=== PATIENT | male | born 1985 | race Caucasian/White ===

== ENCOUNTER 2017-11-16 03:11 | Inpatient (IN) | payer OTHER ==
[2017-11-16] VITALS (8 sets, daily range): BP systolic 112–130; BP diastolic 58–95
[~2017-11-16] VITALS: Ht 177.8 cm; Wt 73.5 kg
[~2017-11-16 03:11] MED LIST: CEPHALEXIN500 M1 PO; GABAPENTIN800 MG PO; PERCOCET 325 MG1 TA2 PO
[2017-11-16 04:07] LABS: ALBUMIN 3.6 gm/dl (3.1-4.5); ALKALINE PHOSPHATASE 58 U/L (45-117); BUN 9 mg/dl (7-24); CHLORIDE 108 mmol/L (98-107); CREATININE 0.93 mg/dL (0.70-1.30); POTASSIUM 3.9 mmol/L (3.5-5.1); SGOT/AST 436 IU/L (3-35); SGPT/ALT 134 U/L (12-78); SODIUM 143 mmol/L (136-145); TOTAL PROTEIN 7.1 gm/dL (6.4-8.2)
[2017-11-16 04:08] LABS: TROPONIN I < 0.015 ng/ml (<0.045)
[2017-11-16 04:37] LABS: BASO # 0.1 10*3/uL (0.0-0.1); BASO % 1.1 % (0.0-1.0); EOS # 0.3 10*3/uL (0.0-0.4); EOS % 4.4 % (1.0-4.0); HEMATOCRIT 45.6 % (42.0-52.0); HEMOGLOBIN 14.9 g/dl (14.0-18.0); LYMPH # 2.1 10*3/uL (1.3-4.4); LYMPH % 31.7 % (27.0-41.0); MEAN CELL VOLUME 88.7 fl (80.0-94.0); MEAN CORPUSCULAR HGB CONC 32.7 g/dl (33.0-37.0); MEAN PLATELET VOLUME 12.4 fl (9.6-12.3); MONO # 0.4 10*3/uL (0.1-1.0); MONO % 6.6 % (3.0-9.0); NEUT # 3.7 10*3/uL (2.3-7.9); PLATELET COUNT AUTOMATED 181 10*3/uL (130-400); RED BLOOD COUNT 5.14 10*6/uL (4.50-5.90); RED CELL DISTRI WIDTH 14.1 % (0-14.5); WHITE BLOOD COUNT 6.5 10*3/uL (4.8-10.8)
[2017-11-16 13:44] LABS: FREE T4 1.21 ng/dl (0.76-1.46)
[2017-11-16 13:48] LABS: THYROID STIM HORMONE (HS) 0.451 uIU/ml (0.358-4.75)
[2017-11-16] MEDS ORDERED: NEURONTIN600 MG PO (17:04)
[2017-11-16] MEDS ORDERED: TRAZODONE100 MG PO (17:04)
[2017-11-17] VITALS: BP 123/75
[2017-11-17 04:00] VITALS: BP 108/59
[2017-11-17 16:00] VITALS: BP 104/55
[2017-11-17 20:00] VITALS: BP 114/63
[2017-11-18] VITALS: BP 156/83
[2017-11-18 10:00] VITALS: BP 120/60
[2017-11-18 12:00] VITALS: BP 116/81
[2017-11-18 16:00] VITALS: BP 113/63
[2017-11-18 20:00] VITALS: BP 127/86
[2017-11-19] MEDS ORDERED: ZOFRAN4 MG PO (11:38)
[2017-11-19] MEDS ORDERED: VISTARIL25 MG PO (11:38)
== END 2017-11-19 11:46 | disposition home or self-care (01) | DRG 309 ==
LOC: ED 03:11 → EDHOLD 05:53 → 5E 05:53
PROVIDERS: Emergency Medicine; Internal Medicine
DX: R00.1 Bradycardia, unspecified (principal); I50.30 Unspecified diastolic (congestive) heart failure; D72.1 Eosinophilia; E87.8 Other disorders of electrolyte and fluid balance, not elsewhere classified; E83.41 Hypermagnesemia; F11.10 Opioid abuse, uncomplicated; F39 Unspecified mood [affective] disorder; R74.0 Nonspecific elevation of levels of transaminase and lactic acid dehydrogenase [LDH]; F15.10 Other stimulant abuse, uncomplicated; F14.10 Cocaine abuse, uncomplicated; Z72.0 Tobacco use; Z87.898 Personal history of other specified conditions; Z87.81 Personal history of (healed) traumatic fracture; Z79.899 Other long term (current) drug therapy; Z90.49 Acquired absence of other specified parts of digestive tract; Z71.6 Tobacco abuse counseling; Z82.49 Family history of ischemic heart disease and other diseases of the circulatory system

== ENCOUNTER 2017-12-01 14:31 | Emergency (ER) | payer OTHER ==
[~2017-12-01] VITALS: Ht 180.3 cm; Wt 77.1 kg
[~2017-12-01 14:31] MED LIST changes: +NEURONTIN600 MG PO; +TRAZODONE100 MG PO; +VISTARIL25 MG PO; +ZOFRAN4 MG PO
[2017-12-01 15:22] LABS: BASO # 0.1 10*3/uL (0.0-0.1); BASO % 0.8 % (0.0-1.0); EOS # 0.2 10*3/uL (0.0-0.4); EOS % 1.5 % (1.0-4.0); HEMATOCRIT 44.7 % (42.0-52.0); HEMOGLOBIN 14.6 g/dl (14.0-18.0); LYMPH # 2.2 10*3/uL (1.3-4.4); LYMPH % 22.4 % (27.0-41.0); MEAN CELL VOLUME 88.5 fl (80.0-94.0); MEAN CORPUSCULAR HGB 28.9 pg (27.0-31.0); MEAN CORPUSCULAR HGB CONC 32.7 g/dl (33.0-37.0); MEAN PLATELET VOLUME 10.2 fl (9.6-12.3); MONO # 1.1 10*3/uL (0.1-1.0); MONO % 10.7 % (3.0-9.0); NEUT # 6.4 10*3/uL (2.3-7.9); NEUT % 64.4 % (47.0-73.0); PLATELET COUNT AUTOMATED 214 10*3/uL (130-400); RED BLOOD COUNT 5.05 10*6/uL (4.50-5.90); RED CELL DISTRI WIDTH 14.2 % (0-14.5); WHITE BLOOD COUNT 9.9 10*3/uL (4.8-10.8)
[2017-12-01 15:31] LABS: ACT PARTIAL THROMBO TIME 24.7 SECONDS (20.8-31.5)
[2017-12-01 15:40] LABS: ALBUMIN 3.7 gm/dl (3.1-4.5); ALKALINE PHOSPHATASE 67 U/L (45-117); BUN 12 mg/dl (7-24); CHLORIDE 103 mmol/L (98-107); SGOT/AST 34 IU/L (3-35); SGPT/ALT 52 U/L (12-78); SODIUM 137 mmol/L (136-145); TOTAL PROTEIN 7.5 gm/dL (6.4-8.2)
[2017-12-01 15:44] LABS: TROPONIN I < 0.015 ng/ml (<0.045)
[2017-12-01 15:50] LABS: ETHYL ALCOHOL < 3.0 mg/dl (<3)
[2017-12-01 15:51] LABS: ACETAMINOPHEN (TYLENOL) < 2.0 ug/ml (10-30)
[2017-12-01 19:36] LABS: BILIRUBIN NEGATIVE (NEGATIVE); BLOOD NEGATIVE (NEGATIVE); CLARITY CLEAR (CLEAR); COLOR YELLOW (YELLOW); GLUCOSE NEGATIVE (NEGATIVE); KETONE NEGATIVE (NEGATIVE); LEUKO ESTERASE NEGATIVE (NEGATIVE); NITRITE NEGATIVE (NEGATIVE); PH 5.5 (5.0-9.0); SPECIFIC GRAVITY <= 1.005 (1.005-1.030); UROBILINOGEN 0.2 E.U./dl (0.2-1.0)
[2017-12-01 19:45] LABS: URINE AMPHETAMINES < 1000 (1000ng/ml); URINE BARBITURATES < 200 (200ng/ml); URINE BENZODIAZEPINES < 200 (200ng/ml); URINE CANNABINOIDS (THC) < 50 (50ng/ml); URINE COCAINE > 300 (300ng/ml); URINE METHADONE < 300 (300ng/ml); URINE OPIATES > 300 (300ng/ml); WBC 0-2 wbc/hpf (0-5)
[2017-12-01] MEDS ORDERED: AMOXICILLIN500 M3 PO (19:49)
[2017-12-01 19:50] LABS: URINE PHENCYCLIDINE < 25 (25ng/ml)
[2017-12-01] MEDS ORDERED: TYLENOL325 M3 PO (19:58)
== END 2017-12-01 20:46 | disposition home or self-care (01) ==
LOC: ED 14:31
PROVIDERS: Physician Assistant
DX: J03.90 Acute tonsillitis, unspecified (principal); F19.10 Other psychoactive substance abuse, uncomplicated; F17.200 Nicotine dependence, unspecified, uncomplicated